=== PATIENT | male | born 1970 | race Two or more races ===

== ENCOUNTER 2021-08-14 08:00 | Outpatient (CLI) | payer OTHER | END 2021-08-14 08:30 | disposition home or self-care (01) | LOC: PPH VACUNA 08:00 | PROVIDERS: ATTEND Emergency Medicine Pediatric Emergency Medicine | DX: Z23 Encounter for immunization (principal) ==

== ENCOUNTER 2023-06-06 07:55 | Outpatient (CLI) | payer OTHER | END 2023-06-06 08:06 | disposition home or self-care (01) | LOC: RAD 07:55 | DX: J20.8 Acute bronchitis due to other specified organisms (principal) ==

== ENCOUNTER 2024-12-28 14:07 | Outpatient (CLI) | payer OTHER | END 2024-12-28 14:09 | disposition home or self-care (01) | LOC: RAD 14:07 | PROVIDERS: ATTEND Physical Medicine & Rehabilitation | DX: M79.671 Pain in right foot (principal); M72.2 Plantar fascial fibromatosis ==